=== PATIENT | male | born 1965 | race Caucasian/White ===

== ENCOUNTER 2018-10-30 18:13 | Emergency (ER) | payer SELFPAY ==
[~2018-10-30] VITALS: Ht 180.3 cm; Wt 81.6 kg
--- NOTE | 2018-10-30 18:13 | NUR ---
Patient BIBA ACLS, transferred to bed 7. RN evaluating patient at bedside.
[2018-10-30 18:15] VITALS: BP 164/94
--- NOTE | 2018-10-30 18:47 | NUR ---
BIBA S/P SYNCOPAL EPISODE TODAY WHILE WALKING ACROSS STREET. PER PT, HE FELL AND HIT HIS HEAD. PATIENT STATES HE MAY HAVE HAD LOC X FEW SECONDS, BUT HE GOT UP AND WALKED TO THE STORE AND ASKED THEM TO CALL 911. PT HAS HEAD DRESSING COVERING THE LACERATION. PATIENT DENIES N/V/DIZZINESS. COMPLAINING OF HEADACHE AT THIS TIME 01/08. PT IS CONVERSING AND ANSWERING QUESTIONS APPROPRIATLY AT THIS TIME. NO NEURO DEFECITS NOTED AT THIS TIME.
--- NOTE | 2018-10-30 19:12 | NUR ---
GAVE REPORT TO MAVERICK LEIVA FOR TRANSFER OF CARE
--- NOTE | 2018-10-30 19:31 | NUR ---
RECEIVED REPORT FROM AM NURSE. PT LAYING IN BED, RR EVEN AND UNLABORED. PT REPORTS 2/10 OCCIPITAL HEAD PAIN FROM LAC. DRESSING IN PLACE, BLEEDING CONTROLLED. PT DENIES DIZZINESS, N/V. VSS. ALL NEEDS MET.
[2018-10-30] MEDS ORDERED: NACL 0.9% 1,000 ML IV ONE (19:40)
[2018-10-30 20:02] LABS: BASOPHILS % (AUTO) 0.5 % (0.0-2.0); EOSINOPHILS # (AUTO) 0.2 K/uL (0-0.4); LYMPHOCYTES # (AUTO) 1.9 K/uL (2.0-11.5); MEAN CORPUSCULAR HEMOGLOBIN 28 pg (27-31); MEAN CORPUSCULAR HGB CONC 33 g/dL (33-37); MEAN CORPUSCULAR VOLUME 85.2 fL (80-94); MONOCYTES # (AUTO) 0.6 K/uL (0.8-1.0); MONOCYTES % (AUTO) 7.4 % (1.7-9.3); NEUTROPHILS # (AUTO) 5.4 K/uL (1.8-7.7); NEUTROPHILS % (AUTO) 66.1 % (42.2-75.2); PLATELET COUNT (AUTO) 283 K/uL (140-450); RED BLOOD CELL COUNT(AUTO) 4.57 MIL/uL (4.20-6.10); RED CELL DISTRIBUTION WIDTH 12.9 % (11.6-13.7); WHITE BLOOD COUNT (AUTO) 8.1 K/uL (4.8-10.8)
[2018-10-30 20:10] LABS: ANION GAP 9.1 (8-16); CARBON DIOXIDE 29.3 mmol/L (21-32); CHLORIDE 99 mmol/L (98-107); CREATININE 0.9 mg/dL (0.7-1.3); GFR ARICAN-AMERICAN 114 mL/min (>90); GLUCOSE 334 mg/dL (74-106); POTASSIUM 4.4 mmol/L (3.5-5.1); SODIUM SERUM 133 mmol/L (136-145); UREA NITROGEN, BLOOD 14 mg/dL (7-18)
--- NOTE | 2018-10-30 20:11 | NUR ---
PT TAKEN TO CT SCAN
[2018-10-30] MEDS ORDERED: INSULIN NPH HUMAN ISOPHANE 100 UNIT/ML VIAL SUBQ ONE (20:15)
[2018-10-30 20:16] LABS: ALBUMIN 3.7 g/dL (3.4-5.0); ASPARTATE AMINOTRANSFERASE 12 U/L (15-37); TOTAL BILIRUBIN 0.4 mg/dL (0.0-1.0)
--- NOTE | 2018-10-30 20:34 | NUR ---
PT REFUSED CXR DESPITE EDUCATION, PT STATED "I DON'T THINK I HAVE ANYTHING." EXPLAINED TO PT THAT CXR IS NEEDED TO RULE OUT HEART AND LUNG CONDITIONS. DR CURIEL MADE AWARE.
[2018-10-30 20:50] LABS: APPEARANCE,URINE CLEAR (CLEAR); BILIRUBIN,URINE NEGATIVE (NEGATIVE); BLOOD, URINE NEGATIVE (NEGATIVE); COLOR,URINE YELLOW (YELLOW); LEUKOCYTE ESTERASE ,URINE NEGATIVE (NEGATIVE); NITRITE, URINE NEGATIVE (NEGATIVE); UGLUCOSE 3+ (NEGATIVE)
[2018-10-30 21:01] LABS: BARBITURATE, URINE NEG. ng/ml (NEG <=200); BENZODIAZEPINE, URINE NEG. ng/mL (NEG <=200); CANNABINOID, URINE NEG. ng/mL (NEG <=50); COCAINE, URINE NEG. ng/mL (NEG <=300); OPIATE, URINE NEG. ng/mL (NEG <=2000); PHENCYCLIDINE SCREEN,URINE NEG. ng/mL (NEG <=25)
--- NOTE | 2018-10-30 21:10 | NUR ---
PT PROVIDED WITH MEAL. PT GIVEN HOMELESS RESOURCE PACKET, WAIVER FORM SIGNED. PT WITH APPROPRIATE CLOTHING FOR WEATHER. PT GIVEN BUS PASS.
[2018-10-30 21:30] VITALS: BP 138/88
--- NOTE | 2018-10-30 21:30 | NUR ---
Patient discharged with v/s stable. Written and verbal after care instructions given and explained. Patient verbalized understanding. Ambulatory with steady gait. All questions addressed prior to discharge. Advised to follow up with PMD.
== END 2018-10-30 21:30 | disposition home or self-care (01) ==
LOC: MED 18:13
DX: S00.03XA Contusion of scalp, initial encounter (principal); E86.0 Dehydration; E11.65 Type 2 diabetes mellitus with hyperglycemia; F12.10 Cannabis abuse, uncomplicated; Z59.0 Homelessness; W18.39XA Other fall on same level, initial encounter; Y93.89 Activity, other specified; Y92.89 Other specified places as the place of occurrence of the external cause; Y99.8 Other external cause status
CPT/HCPCS: 36415; 70450; 72125; 80053; 80305; 81003; 84484; 85025; 93005; 96360; 99284; G0482; J7030